=== PATIENT | female | born 1970 | race Asian ===

== ENCOUNTER 2023-05-18 09:30 | Outpatient (CLI) | payer OTHER, SELFPAY | END 2023-05-18 09:31 | disposition home or self-care (01) | PROVIDERS: Visit Provider Obstetrics & Gynecology | DX: N83.8 Other noninflammatory disorders of ovary, fallopian tube and broad ligament (principal) | CPT/HCPCS: 36415; 86850; 86900; 86901 ==

== ENCOUNTER 2023-05-21 00:23 | Day surgery (SDC) | payer OTHER, SELFPAY ==
[2023-05-18 10:02] VITALS: BP 110/90; PULSE 53; RESP 16; TEMP 36.4; O2SAT 100; BMI 24.4
--- NOTE | 2023-05-18 10:34 | PC.NURSE ---
Report to the Outpatient Waiting Room, entrance under the green pavilion located off [facility], at time __9:15am on date ___05/21/23____. Planned Procedure Time: __11:15am . Time changes happen often and if your time is changed the preop area will call you the afternoon before. - You and your visitor will be asked to self-screen and do not enter if you have any COVID symptoms. - A mask is optional within the hospital at this time. Patients may have clear liquids (water, carbonated beverages, clear teas, apple juice) until 3 hours prior to surgery with a maximum of 20 ounces. - No food from midnight until time of surgery Take the following medications with a SIP of water the morning of surgery: ___none DO NOT STOP ANY OF YOUR OTHER PRESCRIPTION MEDICATIONS PRIOR TO SURGERY ?EXCEPT THE FOLLOWING Medications to discontinue per physician none Date to take last dose Please no make-up, nail british, hairspray, perfume, deodorant, or body powder the day of surgery. No jewelry (including any body piercings) or valuables the day of surgery, leave them at home. Please take a shower or bath the night before, or the morning of, surgery with an antibacterial soap. Wear comfortable, loose fitting clothing. Children are encouraged to wear pajamas. - Jewelry must be removed prior to entering the operating room. Rings and piercings that are not removed may be cut off. - The hospital will not accept responsibility for valuables. - Please leave all valuables, including medications, at home the day of surgery. If you are going home after surgery, a licensed motorcycle delivery driver must drive you home. - NO public transportation without another adult if you receive anesthesia. - We recommend that an adult stay with you for 24 hours following discharge. - We also recommend that you do not drive, make important decision, drink alcoholic beverages, or take any drugs that were not prescribed by your health care provider for at least 24 hours after your discharge time. For Pediatric surgeries, we recommend two adults accompany the child home. Follow any additional instructions given to you from your surgeon. If you or anyone in your household have experienced Covid symptoms in the past week, please notify your surgeon or the nurse liaison at the phone number below for possible testing. Telephone instructions given to __patient & friend and asked if any additional questions and then verbalized understanding. Patient advised to call surgeon office or pre surgery nurse liaison [phone] if any additional questions.
--- NOTE | 2023-05-19 16:22 | P.HP_ITS ---
H&P: HPI History of Present Illness Date/Time: 05/19/23 16:22 Chief Complaint: Abdominal pain with large left ovarian cyst Narrative: See pleasant 53-year-old female admitted for laparoscopic LSO. He was seen in the office complaining of severe pain and on exam was done and very big fullness was seen. Large left ovarian cyst was noted she was offered left ovarian removal. Risks and benefits were reviewed including not exclusive of , aspiration, bleeding, transfusion, perforation injury to bowel, bladder, ureters, or other internal organs with need for open laparotomy. This was presented to her by her friend who speaks Faroese and the patient voiced good understanding through her her electro mechanical designer friend. [facility] Social History Social History Smoking status: Never smoker Second hand tobacco smoke exposure: Yes Substance use: never Living arrangements: with family Additional living arrangements comments: HUSB AND CHILDREN AND MIL Spiritual care concerns: No Meds Home Medications and Allergies Home Medications Medication Instructions Recorded Confirmed Type No Home Medications 05/18/23 05/18/23 History Allergies Allergy/AdvReac Type Severity Reaction Status Date / Time No Known Allergies Allergy Verified 05/18/23 10:01 Exam Const: General: cooperative, healthy appearing, comfortable and average body habitus Nutritional Appearance: average body habitus Azar entation/consciousness: oriented to person, oriented to place and oriented to time Resp: Effort & Inspection: normal respiratory effort Cardio: Rate: regular rate Rhythm: regular rhythm Heart sounds: S1 normal heart sound present and S2 normal heart sound present GI: Inspection: normal to inspection Auscultation: normal bowel sounds : External Female Exam: normal external appearance Speculum Exam - Vagina: normal appearance of the vagina Speculum Exam - Cervix: normal appearance of the cervix Bimanual exam- vagina & uterus: uterine size normal Bimanual Exam- Adnexa, other: Adnexal mass present on the left tender Assessment and Plan Assessment and plan (1) Left ovarian cyst: Code(s): N83.202 - Unspecified ovarian cyst, left side Status: Acute Plan Laparoscopic left salpingo-oophorectomy
[2023-05-21] VITALS (14 sets, daily range): BP systolic 73–110; BP diastolic 44–72; PULSE 51–71; RESP 11–18; TEMP 36.1–36.4; O2SAT 98–100
--- NOTE | 2023-05-21 07:18 | P.PNAN_ITS ---
Anes - Initial Pre Proc Eval Procedure: Operation Date: 05/21/23 09:15 Proposed Procedures p Laparoscopic Left Salpingo-oophorectomy - Car Lau MD Date/Time: 05/21/23 07:18 Surgeon: Car Lau MD Pre Op Diagnosis: Lt Ovarian Mass, Pain Patient Data Age: 53 Gender: F Height: 1.55 m Weight: 58.7 kg Last Vital Signs Temp 36.4 C L 05/18/23 10:02 Pulse 53 L 05/18/23 10:02 Resp 16 05/18/23 10:02 BP 110/90 05/18/23 10:02 Pulse Ox 100 05/18/23 10:02 O2 Del Method Room Air 05/18/23 10:02 Allergies Allergy/AdvReac Type Severity Reaction Status Date / Time No Known Allergies Allergy Verified 05/21/23 07:56 Home Medications Medication Instructions Recorded Confirmed Type hydrocodone 5 mg-acetaminophen 325 1 tablet PO Q4H PRN pain #30 tabs 05/21/23 Rx mg tablet Patient hx anesthesia problems: none Family hx anesthesia problems: none Results Review: All pre-operative results and documents have been reviewed as part of the pre- operative evaluation. [facility] Social History Social History Smoking status: Never smoker Second hand tobacco smoke exposure: Yes Substance use: never Living arrangements: with family Additional living arrangements comments: HUSB AND CHILDREN AND MIL Spiritual care concerns: No Anes - Eval Final PreProcedure Day of Procedure 05/21/23 07:18 Patient weight: overweight Heart: regular rate and rhythm Lungs: clear to auscultation Airway: Mallampati scale class II Neurological: alert and oriented Last oral intake: >/= 8 hours ASA classification: I Emergent: no Anesthetic plan: proceed Anesthesia type and monitoring: general ETT and standard monitoring Results Review: All pre-operative results and documents have been reviewed as part of the pre- operative evaluation. Informed Consent: The patient's anesthetic plan and its attendant risks and benefits were discussed with the patient/family/POA. Questions were solicited and answers provided to the satisfaction of the patient/family/POA.
--- NOTE | 2023-05-21 07:22 | WPDHPUPDATE1 ---
History and Physical Update Update Date/Time: 05/21/23 07:22 History and Physical has been reviewed, including an updated exam of the patient. There are NO changes in the patient's condition. Risks, benefits, and alternatives have been discussed and questions answered. Patient agrees to proceed with procedure.
[2023-05-21] MEDS: LACTATED RINGERS 1,000 ML 30 ML IV CONT ×2 (07:40→10:32)
[2023-05-21] MEDS: KETOROLAC 15 MG/ML VIAL (*BKC) IV PUSH (07:45)
[2023-05-21] MEDS: ACETAMINOPHEN 500 MG TABLET 1000 MG PO (07:45)
--- NOTE | 2023-05-21 10:20 | P.OP_ITS ---
Procedure Note - Detailed Date of Procedure 05/21/23 Pre-op Diagnosis Lt Ovarian Mass, Pain Post-op Diagnosis Other (Right ovarian mass with multiple adhesions and pelvic pain) Procedure Performed laparoscopic RSO with extensive lysis of adhesions Surgeon Car Lau MD Anesthesia General Indications this is a 53-year-old female with what was suspected to be a left-sided pelvic mass which was actually a right-sided pelvic mass and multiple adhesions with severe pelvic pain Findings large right ovarian cyst with multiple adhesions from omentum to the mass as well as the anterior abdominal wall. Normal-appearing uterus left ovary and tube Description of Procedure patient was prepped draped in the normal sterile fashion placed in the dorsal lithotomy position. Under excellent general trach anesthesia weighted speculum placed in posterior fornix vagina. Anterior lip of cervix grasped with single- tooth tenaculum. Lyons's cannula inserted the cervix. This was next attached to the single-tooth to be used later for uterine manipulation. The bladder emptied of clear urine the weighted speculum was removed. Gloves were changed. A supraumbilical incision made in the Veress needle passed in the abdomen. Abdomen filled with CO2 gas to 15 mercury. The 5mm trocar advanced in the abdomen under direct visualization assuring no injury patient placed in Trendelenburg and the left lower quadrant incision made the 10mm trocar advanced under direct visualization assuring no injury right lower quadrant incision made the 5mm trocar advanced under direct visualization multiple adhesions were seen using sharp dissection by tugging and the cautery and/or LigaSure these were relieved around this pelvic mass. It was noted to be from the right versus the left. The infundibulopelvic structure was then skeletonized clamping burning cutting and then draining this in an Endo-Catch as it had a very benign appearance. This was brought through the left lower quadrant incision. Hemostasis was assured after irrigation was undertaken the lower sites removed gas removed from the abdomen. The upper site removed the incisions closed with 4 Monocryl and glue. Instruments removed from vagina the patient was awakened went to recovery in satisfactory condition. All sponge, needle, instrument counts were correct. There were no immediate complications Estimated Blood Loss 5 Drains No Packing No Pathology Yes Complications No immediate complications Condition Stable
[2023-05-21] MEDS: oxyCODONE HCL (*CRX) 5 MG TAB IR PO (11:54)
== END 2023-05-21 14:05 | disposition home or self-care (01) ==
PROVIDERS: Visit Provider Obstetrics & Gynecology
PROC: (CPT 49320; principal; 2023-05-21 09:15)
DX: D27.0 Benign neoplasm of right ovary (principal); N73.6 Female pelvic peritoneal adhesions (postinfective); R10.2 Pelvic and perineal pain
CPT/HCPCS: 58661; 88305; A9270; J0330; J1100; J1885; J2250; J2405; J2704; J3010; J7030; J7120